=== PATIENT | female | born 1965 | race Caucasian/White ===

== ENCOUNTER 2018-07-24 13:32 | Emergency (ER) | payer MEDICAID ==
[~2018-07-24] VITALS: Ht 165.1 cm; Wt 56.8 kg
[2018-07-24 13:42] VITALS: BP 94/59
--- NOTE | 2018-07-25 09:21 | NUR ---
Called patient to return to ED. Pt called surgeon and she has appt to see him today.
== END 2018-07-24 15:44 | disposition left against medical advice (07) ==
LOC: ER 13:33
DX: R10.9 Unspecified abdominal pain (principal); Z53.21 Procedure and treatment not carried out due to patient leaving prior to being seen by health care provider

== ENCOUNTER 2019-07-30 05:56 | Day surgery (SDC) | payer MEDICAID ==
[2019-07-26 15:05] LABS: CLARITY,URINE CLEAR (Clear); COLOR,URINE YELLOW (Yellow); GLUCOSE, URINE NEGATIVE (Neg); KETONES,URINE NEGATIVE (Neg); LEUKOCYTE ESTERASE ,URINE NEGATIVE (Neg); NITRITES, URINE NEGATIVE (Neg); OCCULT BLOOD,URINE NEGATIVE (Neg); PROTEIN,URINE NEGATIVE (Neg)
[2019-07-26 15:06] LABS: BASOPHILS % (AUTO) 0.6 % (0-1); EOSINOPHILS # (AUTO) 0.1 X10'3 (0-0.9); EOSINOPHILS % (AUTO) 1.3 % (0-6); LYMPHOCYTES # (AUTO) 1.9 X10'3 (1.1-4.8); LYMPHOCYTES % (AUTO) 27.5 % (21-51); MEAN CORPUSCULAR HEMOGLOBIN 32.6 PG (27.0-31.0); MEAN CORPUSCULAR HGB CONC 33.5 g/dL (33.0-36.5); MEAN CORPUSCULAR VOLUME 97.4 FL (78-98); MEAN PLATELET VOLUME 8.5 FL (7.4-10.4); MONOCYTES # (AUTO) 0.7 X10'3 (0-0.9); MONOCYTES % (AUTO) 9.6 % (2-12); NEUTROPHILS # (AUTO) 4.2 X10'3 (1.8-7.7); PRE OP HEMATOCRIT 41.9 % (35.0-45.0); PRE OP PLATELET COUNT 305 X10'3 (140-440); RED CELL DISTRIBUTION WIDTH 13.5 % (11.5-14.5)
[2019-07-26 15:06] LABS: UA COLLECTION TYPE CLN CATCH MIDSTREAM
[2019-07-26 15:16] LABS: ALBUMIN 4.3 G/DL (3.4-5.0); ALBUMIN/GLOBULIN RATIO 1.4 (1.1-1.5); ALKALINE PHOSPHATASE 83 IU/L (46-116); BLOOD UREA NITROGEN 15 MG/DL (7-18); BUN/CREATININE RATIO 22.1 (6.6-38.0); CALCIUM 9.3 MG/DL (8.5-10.1); CHLORIDE 106 MMOL/L (99-107); CREATININE 0.68 MG/DL (0.40-0.90); PRE OP ALT 20 U/L (30-65); PRE OP ANION GAP 2 (8-16); PRE OP AST 15 U/L (10-37); PRE OP BILIRUB, TOTAL 0.2 MG/DL (0.0-1.0); PRE OP GLUCOSE 63 MG/DL (70-104); PRE OP POTASSIUM 4.6 MMOL/L (3.4-5.1); PRE OP SODIUM 145 MMOL/L (135-145); TOTAL CARBON DIOXIDE 37.5 MMOL/L (24-32); TOTAL PROTEIN 7.4 G/DL (6.4-8.2); eGFR 90 ML/MIN
[2019-07-30] VITALS (24 sets, daily range): BP systolic 77–167; BP diastolic 44–97
[~2019-07-30] VITALS: Ht 165.1 cm; Wt 59.0 kg
[~2019-07-30 05:56] MED LIST: ALBU17AE26 INH; AMIT75TA7 PO; CHOL400T PO; DICY20TA11 PO; FLUT100B3 INH; GENTAMICIN IV ONE; LIPA1CAP18 PO; NORMAL SALINE IV ONE; ONDA4TAB12 PO; SUCR1TAB PO; clindamycin-Cleocin 900mg/D5W 50 ML IV ONE; famotidine 20mg tablet PO ONE; ringers solution, lacted 1,000 ML IV SCH
[2019-07-30] MEDS ORDERED: LIDOcaine 1% (10mg/ml) 2ml vial ONE (06:43)
[2019-07-30] MEDS ORDERED: BUPIVAcaine/PF 2.5mg/ml (0.25%) 10ml vial ONE (06:50)
[2019-07-30] MEDS ORDERED: BUPIVACAINE liposomal/PF 13.3 MG/ML vial IM ONE (06:50)
[2019-07-30] MEDS ORDERED: ringers solution, lacted 1,000 ML IV SCH (08:32)
[2019-07-30] MEDS ORDERED: meperidine/PF 25mg/ml syringe IV PRN ×3 (08:35)
[2019-07-30] MEDS ORDERED: proCHLORperazine 10 MG/2 ml inj IV PRN (08:35)
[2019-07-30] MEDS ORDERED: morphine 4 MG/ML inj SYRINge IV PRN (08:35)
[2019-07-30] MEDS ORDERED: morphine 2 MG/ML inj. syringe IV PRN (08:35)
[2019-07-30] MEDS ORDERED: ondansetron/PF 4mg/2ml inj IV PRN (08:35)
[2019-07-30] MEDS ORDERED: midazolam 2 mg/2 ml injection ONE (08:36)
[2019-07-30] MEDS ORDERED: fentaNYL/PF 50MCG/1 ML 2ML syringe ONE (08:36)
[2019-07-30] MEDS ORDERED: propofol inj 20 ML IV ONE (09:01)
[2019-07-30] MEDS ORDERED: ePHEDrine 50MG/ML INJ. ONE (09:02)
[2019-07-30] MEDS ORDERED: dexamethasone sod phosphate 4mg/ml inj. ONE (09:02)
--- NOTE | 2019-07-30 09:26 | NUR ---
Received from OR via [facility], accompanied by Anesthesiologist DR YANCEY and report given by Anesthesiolgist.VSS. ORAL AIRWAY IN PLACE. IV PATENT RT WRIST #20 WITH LR ON A PUMP. DSG TO ANUS AREA CDI. SKIN P/W/D.
--- NOTE | 2019-07-30 09:45 | NUR ---
PT AWAKE. ORAL AIRWAY REMOVED. TALKING FREELY. VSS
[2019-07-30] MEDS ORDERED: HYDROcodone/acetaminophen 5mg/325mg tablet PO ONE (10:20)
--- NOTE | 2019-07-30 10:20 | NUR ---
C/O PAIN AND WAS MEDICATED WITH DEMEROL IV. POST PAIN MED SBP 90. SLEEPING INTERMITTENTLY. SAO2 88% ON RA. O2 NC APPLIED WITH SAO2 93-94%.
--- NOTE | 2019-07-30 10:50 | NUR ---
Received from OR via [facility], accompanied by Anesthesiologist DR YANCEY and report given by Anesthesiolgist. PT AWAKE, VVS. NO C/O PAIN. ABD DSG CDI. IV LEFT UPPERARM PATENT #20. ABD ROUNDED, SOFT- PER DR WICK PT'S PRE-OP ABD WAS ROUNDED. Addendum: 07/30/19 at 1127 by Stacey Arshad RN AMEND NOTE-CHARTING ERROR-WRONG PATIENT-DISREGARD PREVIOUS NOTE
--- NOTE | 2019-07-30 11:30 | NUR ---
VSS. MINIMAL TO NO BLEEDING FROM ANUS NOTED. MARINA PO FLUIDS WELL. UP TO COMMODE-UNABLE TO VOID AT THIS TIME. ROGER AT THE BEDSIDE.
--- NOTE | 2019-07-30 12:46 | NUR ---
BLADDER SCAN AT 1230 WITH 125 MLS PRESENT. UP TO COMMODE-VOIDED 100MLS. NO NEW ANAL BLEEDING NOTED. VSS. IV DC'D WITH CANNULA INTACT. DC INSTRUCTIONS REVIEWED WITH HSB AND PT WHO VERBALIZED UNDERSTANDING. SITZ BATH GIVEN FOR HOME USE. PT STATES READINESS TO DC HOME. DC VIA WC WITH GLASSES AND DENTURES PRESENT TO PRIVATE AUTO WITH HSB WAITING
== END 2019-07-30 12:46 | disposition home or self-care (01) ==
LOC: PAS 05:56
PROVIDERS: ATTEND Surgery
DX: K64.2 Third degree hemorrhoids (principal); K64.4 Residual hemorrhoidal skin tags; K60.2 Anal fissure, unspecified; J44.9 Chronic obstructive pulmonary disease, unspecified; G43.909 Migraine, unspecified, not intractable, without status migrainosus; Z79.899 Other long term (current) drug therapy; Z98.890 Other specified postprocedural states; Z87.891 Personal history of nicotine dependence; Z86.19 Personal history of other infectious and parasitic diseases; Z88.0 Allergy status to penicillin
CPT/HCPCS: 36415; 46200; 46947; 80053; 81003; 82948; 85025; A6224; C9290; J1100; J1580; J2001; J2175; J2250; J2704; J3010; J3490; A4215; A4618; A6449; A7000; J7120